=== PATIENT | male | born 1950 | race Hispanic/Latino ===

== ENCOUNTER 2017-07-29 12:38 | Outpatient (CLI) | payer MEDICARE ==
--- NOTE | 2017-07-29 13:54 | XRay Report ---
XRAY LEFT KNEE 4 THREE VIEWS: 07/29/17 CLINICAL: Left knee pain. FINDINGS: Status post total knee replacement with normal appearance of the prosthesis. However, there is an abnormal oblique lucency with cortical interruption in the lateral femoral condyle that is identified on 2 views.Fullness in the suprapatellar soft tissues suggests joint effusion. Vascular calcifications and benign periosteal reaction at the posterior tibia. IMPRESSION: Status post total knee replacement. Subacute non-healed nondisplaced closed fracture of the lateral femoral condyle.
== END 2017-07-29 12:39 | disposition home or self-care (01) ==
LOC: SPVIMAG 12:38
PROVIDERS: ATTEND Orthopaedic Surgery Sports Medicine
DX: S72.425A Nondisplaced fracture of lateral condyle of left femur, initial encounter for closed fracture (principal); M25.862 Other specified joint disorders, left knee; Z96.652 Presence of left artificial knee joint; X58.XXXA Exposure to other specified factors, initial encounter; Y93.89 Activity, other specified; Y92.89 Other specified places as the place of occurrence of the external cause; Y99.8 Other external cause status